=== PATIENT | female | born 1945 | race Caucasian/White ===

== ENCOUNTER → 2016-06-04 | Outpatient (CLI) | payer MEDICARE, OTHER ==
[~2016-06-04] MED LIST: ALEN70TA2 PO; ASPI-231 PO; B-COCAP4 OR; BUPR-40 PO; CALCTAB25 PO; CHOL20009 PO; LACTCAP OR; LORA-154 OR; MAGN500T11 PO
[2016-06-04 14:00] LABS: Basophils # (auto) 0 uL; Basophils % (auto) 0.6 % (0.0-2.0); Eosinophils # (auto) 0.1 uL; Eosinophils % (auto) 3.5 % (0.0-7.0); Hematocrit 42.9 % (36.0-46.0); Hemoglobin 13.4 g/dL (12.2-16.2); Lymphocytes # (auto) 1.7 uL; Lymphocytes % (auto) 43.9 % (10.0-50.0); Mean Corpuscular Hemoglobin 27.7 pg (28.0-32.0); Mean Corpuscular Hgb Conc. 31.2 g/dL (32.0-36.0); Mean Corpuscular Volume 88.7 fL (80.0-100.0); Mean Platelet Volume 8.1 fL (7.4-10.4); Monocytes # (auto) 0.3 uL; Monocytes % (auto) 8.4 % (0.0-12.0); Neutrophils # (auto) 1.7 uL; Neutrophils % (auto) 43.6 % (37.0-80.0); Platelet Count (auto) 239 10^3/uL (140-450); Red Cell Distribution Width 14.5 % (11.6-16.0)
[2016-06-04 14:59] LABS: Albumin 3.9 g/dL (3.4-5.0); BUN/Creatinine Ratio 17.6; Bilirubin, Total 0.3 mg/dL (0.2-1.0); Total Protein 7.2 g/dL (6.4-8.2)
== END | disposition home or self-care (01) ==
LOC: LAB 12:16
PROVIDERS: ATTEND Obstetrics & Gynecology
DX: N95.1 Menopausal and female climacteric states (principal); E07.89 Other specified disorders of thyroid; E34.9 Endocrine disorder, unspecified
CPT/HCPCS: 36415; 80053; 80061; 82306; 82607; 82670; 83001; 84403; 84436; 84443; 84481; 85025; 86376